=== PATIENT | male | born 1985 | race Caucasian/White ===

== ENCOUNTER 2023-11-17 10:44 | Outpatient (OUT) | payer BC, SELFPAY ==
[2023-11-17 11:28] LABS: Basophils Percent Auto 0.3 % (0.2-2.0); Eosinophils Percent Auto 0.4 % (0.9-7.0); Hematocrit 45.8 % (42.0-54.0); Hemoglobin 15.7 g/dL (14.0-18.0); Immature Granulocytes Abs Auto 0.03 10^3/uL (0.00-0.03); Immature Granulocytes Pct Auto 0.3 % (0.0-0.5); Lymphocytes Absolute Auto 2.1 10^3/uL (1.2-3.8); Lymphocytes Percent Auto 20.6 % (20.5-60.0); Mean Corpuscular HGB Conc 34.3 g/dL (29.9-35.2); Mean Corpuscular Hemoglobin 30.9 pg (25.9-34.0); Mean Corpuscular Volume 90.2 fL (80.0-94.0); Mean Platelet Volume 9.6 fL (9.5-13.5); Monocytes Absolute Auto 0.6 10^3/uL (0.3-0.8); Monocytes Percent Auto 5.6 % (1.7-12.0); Neutrophils Absolute Auto 7.3 10^3/uL (1.4-6.5); Neutrophils Percent Auto 72.8 % (43.0-75.0); Platelet Count 254 10^3/uL (150-450); Red Blood Count 5.08 10^6/uL (4.70-6.10); Red Cell Distribution Width 11.6 % (11.0-15.0); White Blood Count 10.1 10^3/uL (4.0-11.0)
[2023-11-17 11:45] LABS: Alanine Aminotransferase 109 U/L (16-63); Albumin Globulin Ratio 1.1; Alkaline Phosphatase 108 U/L (46-116); Anion Gap 13.1; Aspartate Amino Transferase 40 U/L (15-37); BUN Creatinine Ratio 11.1; Bilirubin Total 0.8 mg/dL (0.2-1.0); Calcium 9.2 mg/dL (8.5-10.1); Carbon Dioxide 29.1 mmol/L (21.0-32.0); Chloride 100 mmol/L (98-107); Chol HDL Ratio 5.6; Cholesterol 207 mg/dL (<=200); Estimated GFR (African America >60 (>=60); Estimated GFR (Non-African Ame >60 (>=60); Free T3 2.64 pg/mL (2.18-3.98); Globulin 3.6 g/dL; Glucose 111 mg/dL (74-106); HDL Cholesterol 37 mg/dL (40-60); Potassium 4.2 mmol/L (3.5-5.1); Sodium 138 mmol/L (136-145); Thyroid Stimulating Hormone 0.859 uIU/mL (0.358-3.740); Total Protein 7.6 g/dL (6.4-8.2); Triglycerides 265 mg/dL (<=150); Uric Acid 6.2 mg/dL (3.5-7.2)
[2023-11-17 12:09] LABS: Estimated Average Glucose 108 mg/dL; Glycohemoglobin A1C 5.4 % (4.5-6.2)
== END 2023-11-17 10:45 | disposition home or self-care (01) ==
LOC: LAB 10:48
PROVIDERS: PCP Family Medicine; Visit Provider Family Medicine
DX: Z00.00 Encounter for general adult medical examination without abnormal findings (principal)
CPT/HCPCS: 36415; 80053; 80061; 83036; 83880; 84436; 84443; 84481; 84550; 85025

== ENCOUNTER 2023-11-25 11:54 | Emergency (ER) | payer BC, SELFPAY ==
--- NOTE | 2023-11-25 12:05 | XR_ITS ---
The [address] [address] Patient Name: CECILIA MIGUEL MRN: [id number] date: 1985 Sex: M Assigned Patient Location: ER Current Patient Location: ER Accession/Order Number: [id number] Exam Date: 11/25/2023 12:20 Report Date: 11/25/2023 16:48 At the request of: CHARLIE SPICER Procedure: XR foot LT min 3V EXAM: XR foot LT min 3V 11/25/2023 FINDINGS: Frontal oblique and lateral views for 3 views obtained. HISTORY: Foot pain COMPARISON: None. XR/XR foot LT min 3V IMPRESSION: Mild hallux valgus deformity with minimal arthritic changes at the first MTP articulation noted. No acute fracture or dislocation. Subcentimeter bone island involving the posterior calcaneus measures 9 mm superior to inferior on the lateral image. A subcentimeter bone island involving the medial malleolus is also noted. Calcaneal enthesophyte adjacent to this is noted. There is no radiopaque foreign body. Electronically authenticated by: ETIENNE TOPETE Date: 11/25/2023 16:48
[2023-11-25 12:10] VITALS: BP 171/96; PULSE 104; TEMP 37; O2SAT 97; BMI 35.6
--- NOTE | 2023-11-25 20:44 | ED.GENADUL1 ---
HPI HPI - General Adult General Chief complaint: Anxiety Stated complaint: LEFT FOOT SWOLLEN Time Seen by Provider: 11/25/23 12:49 Source: patient Mode of arrival: walk-in History of Present Illness HPI narrative: Patient is a 37-year-old male who is presenting with multiple complaints to his left heel, foot, but most importantly admitted situational anxiety. Patient was noted to have elevated LFTs on routine testing by Dr. Reynoso. Dr. Reynoso is still looking into the LFTs, and patient says he may be referred to a specialist. Patient states for months he will have intermittent cramping to his left foot. Patient states when he wakes up in the morning, he'll have a sore foot, into the left heel. Patient is a tennis ball to rule out his left foot, the pain was improved. Patient was taking Abilify for anxiety, he stopped taking this for 5 days because he did not like the side effects. Patient never caused PCP to inform him that he stopped taking Abilify. Patient is also concerned about LFTs being elevated on last blood test, the patient's PCP Dr. Multani's ordering additional tests as an outpatient for further evaluation. Patient had multiple concerns when he arrrived, patient did talk to triage nurse Andrea VÁSQUEZ, a lot of patient nerves were subtle a lot of patients for pain had completely disappeared between the time his triage and talking to me with patient correlates to anxiety. Patient is not hyperventilating her breathing really fast, the patient will have intermittent cramping into his left foot. No injury, no swelling, no ecchymosis, no other acute complaints. . All systems are negative except as noted/marked. All systems reviewed and otherwise negative. . Nurses note and vital signs reviewed and patient is not hypoxic. General: The patient appears well and in no apparent distress. Patient is resting comfortably on cart. Patient is not toxic, lethargic, or listless Skin: Warm, dry, no pallor noted. There is no rash noted. No petechiae, purpura. Head: Normocephalic, atraumatic Eye: Normal conjunctiva, no drainage, EOMI. PERRL Ears, Nose, Mouth, and Throat: oral mucosa is moist. Nares patent. Mouth without vesicles. Cardiovascular: Regular Rate and Rhythm, no murmur, gallop, rub Respiratory: Patient is in no distress, no accessory muscle use, lungs are clear to auscultation, no wheezing, rales or rhonchi Back: non-tender, no CVA tenderness bilaterally to percussion. No CT LS midline pain GI: soft, no tenderness to palpation, no masses appreciated. No rebound, guarding, or rigidity noted. No flank pain bilateral, No distention Musculoskeletal: Patient has full range of motion of all of the extremities, no motor, sensory, or focal neurological deficits. Patient has no tenderness to palpation to bilateral malleoli, no tenderness to palpation to left Achilles. No tenderness to palpation along the plantar fascia. During palpating patient's ankle, foot, Achilles, patient made multiple comments that you can keep touching there or during that, and feels good Neurological: A&O x3, normal speech Psychiatric: Cooperative Related Data Home Medications ?Medication ?Instructions ?Recorded ?Confirmed amlodipine 5 mg tablet 5 mg PO DAILY 11/25/23 11/25/23 diclofenac sodium 75 mg 75 mg PO Q12H 11/25/23 11/25/23 tablet,delayed release lamotrigine 100 mg tablet 100 mg PO DAILY 11/25/23 11/25/23 Allergies Allergy/AdvReac Type Severity Reaction Status Date / Time No Known Drug Allergies Allergy Verified 11/25/23 12:10 Opioid HPI Opioid Management Most Recent Opioid Data: No Data to Display Exam Constitutional Vital Signs, click to edit/add: Last Vital Signs Temp 98.6 F 11/25/23 12:10 Pulse 104 H 11/25/23 12:10 Resp 16 11/25/23 12:10 BP 171/96 H 11/25/23 12:10 Pulse Ox 97 11/25/23 12:10 O2 Del Method Room Air 11/25/23 12:10 Course Vital Signs Vital signs: Vital Signs Temperature 98.6 F 11/25/23 12:10 Pulse Rate 104 H 11/25/23 12:10 Respiratory Rate 16 11/25/23 12:10 Blood Pressure 171/96 H 11/25/23 12:10 Pulse Oximetry 97 11/25/23 12:10 Oxygen Delivery Method Room Air 11/25/23 12:10 Temperature 98.6 F 11/25/23 12:10 Pulse Rate 104 H 11/25/23 12:10 Respiratory Rate 16 11/25/23 12:10 Blood Pressure 171/96 H 11/25/23 12:10 Pulse Oximetry 97 11/25/23 12:10 Oxygen Delivery Method Room Air 11/25/23 12:10 Medical Decision Making MDM Narrative Medical decision making narrative: Patient was shown plantar fasciitis stretching exercises at bedside. Patient is to follow-up with podiatry. Patient is a follow-up with PCP for additional treatment. Education on treating depression, anxiety, stress for discussed at bedside at length with patient for over 10 minutes. Patient understands many options out there besides Abilify. Patient will follow-up with Dr. Reynoso. Patient felt better after discussion. No questions at discharge. Patient said that he felt much better after talking to Andrea VÁSQUEZ and once he had his mind at ease, although his foot symptoms went away. Patient says he is not hyperventilating which is causing any of his intermittent cramping to his feet. Patient does admit that he might be going short shallow breathing secondary to anxiety at home. Discharge Plan Discharge Stand Alone Forms: Portal Instructions Chief Complaint: Anxiety Clinical Impression: Anxiety, Foot pain, left Patient Disposition: Home, Self-Care Time of Disposition Decision: 13:38 Condition: Good Prescriptions / Home Meds: No Action amlodipine 5 mg tablet 5 mg PO DAILY diclofenac sodium 75 mg tablet,delayed release (DR/EC) 75 mg PO Q12H lamotrigine 100 mg tablet 100 mg PO DAILY Print Language: Colombian Instructions: Generalized Anxiety Disorder (ED), Muscle Cramp (ED), P.R.I.C.E. Treatment (ED), Plantar Fasciitis Exercises (ED) Additional Instructions: Ice 20 minutes on, 20 minutes off. Education on plantar fasciitis, muscle cramps, RICE therapy was discussed at bedside. Follow-up with Dr. Reynoso on additional testing for elevated LFTs. Also you have stopped taking Abilify, follow-up with Dr. Reynoso for additional treatment for daily stress anxiety. Referrals: Casey Reynoso MD [Primary Care Provider] - 1 week Discharge Date/Time: 11/25/23 14:18
== END 2023-11-25 14:18 | disposition home or self-care (01) ==
LOC: ER 13:44
PROVIDERS: Emergency Provider Emergency Medicine; PCP Family Medicine
DX: F41.9 Anxiety disorder, unspecified (principal); M79.672 Pain in left foot; Z79.899 Other long term (current) drug therapy
CPT/HCPCS: 73630; 99283

== ENCOUNTER 2023-11-27 14:39 | Outpatient (OUT) | payer BC, SELFPAY ==
[2023-11-27 15:29] LABS: Alanine Aminotransferase 105 U/L (16-63); Albumin Globulin Ratio 1.2; Albumin Level 4.4 g/dL (3.4-5.0); Alkaline Phosphatase 111 U/L (46-116); Anion Gap 16.9; Aspartate Amino Transferase 51 U/L (15-37); BUN Creatinine Ratio 9.3; Bilirubin Total 0.7 mg/dL (0.2-1.0); Calcium 9.5 mg/dL (8.5-10.1); Carbon Dioxide 24.8 mmol/L (21.0-32.0); Chloride 100 mmol/L (98-107); Estimated GFR (African America >60 (>=60); Estimated GFR (Non-African Ame >60 (>=60); Globulin 3.6 g/dL; Glucose 96 mg/dL (74-106); Potassium 3.7 mmol/L (3.5-5.1); Sodium 138 mmol/L (136-145)
[2023-11-28 05:07] LABS: HBsAg Screen Negative (Negative); HCV Ab Non Reactive (Non Reactive); Hep A Ab, IgM Negative (Negative); Hep B Core Ab, IgM Negative (Negative)
== END 2023-11-27 14:40 | disposition home or self-care (01) ==
LOC: LAB 14:41
PROVIDERS: PCP Family Medicine; Visit Provider Family Medicine
DX: R79.89 Other specified abnormal findings of blood chemistry (principal)
CPT/HCPCS: 36415; 80053; 80074